=== PATIENT | female | born 1990 | race American Indian/Alaskan Native ===

== ENCOUNTER 2016-05-16 12:29 | Emergency (ER) | payer BC ==
[2016-05-16 13:14] VITALS: BP 123/77
--- NOTE | 2016-05-16 13:33 | Emergency Department Report ---
Chief Complaint: Dyspnea/Respdistress Stated Complaint: SOB X 1 WK Time Seen by Provider: 05/16/16 13:22 - HPI History of Present Illness: 25-year-old female comes in for shortness of breath times approximately one week. She reports that it is worse with lying down and running moderate shortness of breath while sitting. She denies any fever or chills no nausea no vomiting she is not on control last menstrual period was 05/11/2016. This is new to her - Exam Vital Signs: Vital Signs 05/16/16 13:05 Temperature 98.1 F Pulse Rate 104 H Respiratory 17 Rate Blood Pressure 123/77 O2 Sat by Pulse 100 Oximetry Physical Exam: Patient's alert and oriented 3 cardiovascular mildly tachycardia respiratory clear to auscultation extremities there is no edema appreciated. MSE screening note: Focused history and physical exam performed. Due to findings the following was ordered: CBC BMP EKG. He evaluated Main ER ED Disposition for MSE Condition: Stable
[2016-05-16 14:05] LABS: Hematocrit 36.4 % (30.3-42.9); Hemoglobin 11.8 gm/dl (10.1-14.3); Mean Corpuscular HGB Conc 33 % (30-34); Mean Corpuscular Volume 78 fl (79-97); Platelet Count 337 K/mm3 (140-440); Red Blood Count 4.68 M/mm3 (3.65-5.03); Red Cell Distribution Width 14.5 % (13.2-15.2); White Blood Count 5.8 K/mm3 (4.5-11.0)
[2016-05-16 14:06] LABS: Mean Corpuscular Hemoglobin 25 pg (28-32)
[2016-05-16 14:13] LABS: Anion Gap 18 mmol/L; Blood Urea Nitrogen 14 mg/dL (7-17); Carbon Dioxide 23 mmol/L (22-30); Chloride 100.4 mmol/L (98-107); Glucose 84 mg/dL (65-100); Potassium 4.5 mmol/L (3.6-5.0); Sodium 137 mmol/L (137-145)
--- NOTE | 2016-05-17 13:55 | ED Elopement Review ---
ED Pt Elopement review - Results review Lab results: Laboratory Tests 05/16/16 05/16/16 05/16/16 13:46 13:46 13:46 WBC 5.8 RBC 4.68 Hgb 11.8 Hct 36.4 MCV 78 L MCH 25 L MCHC 33 RDW 14.5 Plt Count 337 Sodium 137 Potassium 4.5 Chloride 100.4 Carbon Dioxide 23 Anion Gap 18 BUN 14 Creatinine 0.7 Estimated GFR > 60 BUN/Creatinine Ratio 20.00 Glucose 84 Calcium 9.0 HCG, Quant < 2 - Call Back decision Pt Call Back Decision: No action required
== END 2016-05-16 23:18 | disposition left against medical advice (07) ==
LOC: ED 12:29
DX: R06.02 Shortness of breath (principal); Z53.21 Procedure and treatment not carried out due to patient leaving prior to being seen by health care provider
CPT/HCPCS: 36415; 80048; 84702; 85027; 93005; 93010

== ENCOUNTER 2018-07-24 19:00 | Emergency (ER) | payer BC | END 2018-07-24 19:25 | disposition left against medical advice (07) | LOC: ED 19:00 ==